=== PATIENT | female | born 1955 | race Asian ===

== ENCOUNTER 2018-05-24 21:47 | Emergency (ER) | payer BC ==
[~2018-05-24] VITALS: Ht 167.6 cm; Wt 61.2 kg
[2018-05-24 21:56] VITALS: Ht 167.6 cm; Wt 61.2 kg
[2018-05-24 22:31] VITALS: BP 136/87
== END 2018-05-24 22:31 | disposition home or self-care (01) ==
LOC: ED 21:47
DX: S42.201A Unspecified fracture of upper end of right humerus, initial encounter for closed fracture (principal); W18.30XA Fall on same level, unspecified, initial encounter; Y93.89 Activity, other specified; Y92.89 Other specified places as the place of occurrence of the external cause; Y99.8 Other external cause status
CPT/HCPCS: Q0092